=== PATIENT | female | born 2000 | race Caucasian/White ===

== ENCOUNTER 2018-08-11 03:12 | Emergency (ER) | payer OTHER ==
[2018-08-11] MEDS: SOD CHLORIDE 0.9% 1,000 ML IV (05:16)
[2018-08-11] MEDS: METOCLOPRAMIDE 10 MG INJ IV (05:17)
[2018-08-11] MEDS: KETOROLAC 30 MG INJ IV (05:17)
[2018-08-11] MEDS: DIPHENHYDRAMINE 50 MG INJ IV (05:17)
== END 2018-08-11 06:56 | disposition home or self-care (01) ==
LOC: FTE 03:12
DX: G43.909 Migraine, unspecified, not intractable, without status migrainosus (principal)
CPT/HCPCS: 81025; 96361; 96374; 96375; 99284-25